=== PATIENT | male | born 1955 | race African-American/Black ===

== ENCOUNTER 2019-04-29 06:20 | Emergency (ER) | payer MEDICAID ==
[~2019-04-29] VITALS: Ht 182.9 cm; Wt 105.0 kg
[~2019-04-29 06:20] MED LIST: AMLO10TA80; ATEN-42; GABA-531; HYDR25TA; OMEP20CA5
[2019-04-29] MEDS ORDERED: MORPHINE SULFATE 4 MG/ML CPJ (NOT FOR IM USE) IV STA (06:35)
[2019-04-29] MEDS ORDERED: ONDANSETRON HCL 4MG/2ML INJ IV STA (06:35)
[2019-04-29] MEDS ORDERED: LORAZEPAM 2MG/ML CPJ IV ONE (07:00)
[2019-04-29 08:15] LABS: EOSINOPHILS % 2.3 % (0.0-5.0); HEMATOCRIT. 43.1 % (42.0-52.0); HEMOGLOBIN. 14.1 g/dL (14.0-18.0); LYMPHOCYTES % 22.9 % (20.0-50.0); MEAN CORPUSCULAR HEMOGLOBIN 26.5 pg (28.0-32.0); MEAN CORPUSCULAR VOLUME 80.9 fL (80.0-94.0); MEAN PLATELET VOLUME 7.4 fl (7.4-10.4); MONOCYTES % 7.8 % (2.0-8.0); PLATELET 279 x1000/uL (130-400); RED BLOOD CELL COUNT 5.33 mill/uL (4.7-6.1); RED CELL DISTRIBUTION WIDTH 14.3 % (11.6-14.6)
[2019-04-29] MEDS ORDERED: KETOROLAC 15MG/ML VIAL IV ONE (08:15)
[2019-04-29 08:19] LABS: PROTHROMBIN TIME 9.8 sec (9.6-11.0)
[2019-04-29 08:28] LABS: CHLORIDE 107 mEq/L (98-107)
[2019-04-29 08:33] VITALS: BP 177/94
== END 2019-04-29 09:24 | disposition home or self-care (01) ==
LOC: ER 06:20
DX: R51 Headache (principal); M54.2 Cervicalgia; I10 Essential (primary) hypertension; Z79.899 Other long term (current) drug therapy
CPT/HCPCS: 36415; 70450; 80053; 85025; 85610; 96374; 96375; 99284; J1885; J2060; J2270; J2405